=== PATIENT | female | born 1990 | race African-American/Black ===

== ENCOUNTER 2016-12-23 16:30 | Emergency (ER) | payer OTHER | END 2016-12-23 21:00 | disposition home or self-care (01) | LOC: D.ER 16:30 | DX: M62.838 Other muscle spasm (principal) ==

== ENCOUNTER 2018-08-21 05:52 | Emergency (ER) | payer SELFPAY ==
[~2018-08-21] VITALS: Ht 162.6 cm; Wt 70.9 kg
[2018-08-21 05:55] VITALS: Ht 162.6 cm; Wt 70.9 kg
[2018-08-21 06:45] LABS: HCG URINE NEGATIVE (NEGATIVE)
[2018-08-21 06:48] LABS: APPEARANCE CLOUDY (CLEAR); BILIRUBIN NEGATIVE (NEGATIVE); COLOR YELLOW (YELLOW); GLUCOSE NEGATIVE (NEGATIVE); KETONE NEGATIVE (NEGATIVE); NITRITE NEGATIVE (NEGATIVE); PROTEIN TRACE mg/dL (NEGATIVE); SPECIFIC GRAVITY 1.015 (1.005-1.020); UROBILINOGEN NORMAL (NORMAL)
[2018-08-21 06:49] LABS: BACTERIA MODERATE /hpf (NONE SEEN); RED CELLS - URINE 0-5 /hpf (0-5)
[2018-08-21] MEDS ORDERED: TAMIFLU75 MG PO (06:54)
[2018-08-21 06:58] VITALS: BP 122/72
== END 2018-08-21 07:02 | disposition home or self-care (01) ==
LOC: D.ER 05:52
PROVIDERS: Family Medicine
DX: J09.X2 Influenza due to identified novel influenza A virus with other respiratory manifestations (principal)